=== PATIENT | male | born 1965 ===

== ENCOUNTER 2023-11-10 12:59 | Inpatient (IN) | payer MEDICAID ==
[~2023-11-10] VITALS: Ht 182.9 cm; Wt 77.7 kg
[2023-11-10 13:30] VITALS: BP 120/85; PULSE 91; RESP 16; TEMP 97.5; O2SAT 97
[2023-11-10] MEDS ORDERED: MAG HYDROX/ALUMINUM HYD/SIMETH ES 30 ML SUSPENSION UDCUP PO PRN (15:45)
[2023-11-10] MEDS ORDERED: MAGNESIUM HYDROXIDE SUSPENSION 30 ML UDCUP PO PRN (15:45)
[2023-11-10] MEDS ORDERED: LORazepam 2 MG TABLET PO PRN (15:45)
[2023-11-10] MEDS ORDERED: ACETAMINOPHEN 325 MG TABLET PO PRN (15:45)
[2023-11-10] MEDS ORDERED: TUBERCULIN, PURIFIED PROTEIN DERIVATIVE 5 TU/0.1 ML SYRINGE ID ONE (15:45)
[2023-11-10] MEDS ORDERED: HydrOXYzine PAMOATE 50 MG CAPSULE PO PRN (15:45)
[2023-11-10] MEDS ORDERED: PROMETHAZINE HCL 25 MG TABLET PO PRN (15:45)
[2023-11-10] MEDS ORDERED: GuaiFENesin/D-METHORPHAN [SUGAR-FREE] 200-20MG/10 ML SYRUP UDCUP PO PRN (15:45)
[2023-11-10] MEDS ORDERED: ZOLPIDEM TARTRATE 10 MG TABLET PO PRN (15:45)
[2023-11-10] MEDS ORDERED: LOPERAMIDE HCL 2 MG CAPSULE PO PRN (15:45)
[2023-11-10] MEDS ORDERED: OLANZapine 5 MG RAPDIS TABLET PO PRN (15:45)
[2023-11-10 22:30] VITALS: BP 137/95; PULSE 79; RESP 18; TEMP 97.8; O2SAT 97
[2023-11-10] MEDS: MELATONIN 5 MG TABLET PO SCH (22:41)
[2023-11-10] MEDS: OLANZapine 5 MG RAPDIS TABLET PO SCH (22:42)
[2023-11-11 08:50] LABS: BASOPHILS % (AUTO) 0.3 % (0.0-2.0); EOSINOPHILS % (AUTO) 2.3 % (1.0-6.0); HEMATOCRIT 41.9 % (41-53); HEMOGLOBIN 13.9 g/dL (13.5-17.5); LYMPHOCYTES # (AUTO) 1.7 K/uL (1.0-4.8); LYMPHOCYTES % (AUTO) 21.2 % (22.0-44.0); MEAN CORPUSCULAR HEMOGLOBIN 27.7 pg (26.0-34.0); MEAN CORPUSCULAR HGB CONC 33.1 G/dL (31.0-37.0); MEAN CORPUSCULAR VOLUME 84 fL (80-100); MONOCYTES # (AUTO) 0.8 K/uL (0.1-1.0); MONOCYTES % (AUTO) 9.7 % (2.0-9.0); NEUTROPHILS # (AUTO) 5.3 K/uL (1.8-7.7); NEUTROPHILS % (AUTO) 66.5 % (40.0-70.0); PLATELET COUNT (AUTO) 224 K/uL (150-450); RED BLOOD CELL COUNT(AUTO) 5.01 MIL/uL (4.50-5.90); RED CELL DISTRIBUTION WIDTH 14.5 % (11.5-14.5); WHITE BLOOD COUNT (AUTO) 7.9 K/uL (4.5-11.0)
[2023-11-11 08:52] VITALS: BP 131/85; PULSE 72; RESP 18; TEMP 96.9; O2SAT 95
[2023-11-11] MEDS: THIAMINE 100 MG TABLET PO SCH (09:00)
[2023-11-11] MEDS: FOLIC ACID 1 MG TABLET PO SCH (09:05)
[2023-11-11] MEDS: NALTREXONE HCL 50 MG TABLET PO SCH (09:05)
[2023-11-11 09:06] LABS: HEMOGLOBIN A1C 5.8 % (3.8-5.6)
[2023-11-11] MEDS: MULTIVITAMINS WITH MINERALS, THERAPEUTIC TABLET PO SCH (09:06)
[2023-11-11 09:18] LABS: ALANINE AMINOTRANSFERASE 25 U/L (12-78); ALBUMIN 3.3 g/dL (3.4-5.0); ALKALINE PHOSPHATASE 98 U/L (46-116); ANION GAP 10 mmol/L (8-16); ASPARTATE AMINOTRANSFERASE 19 U/L (15-37); BILIRUBIN,TOTAL 0.2 mg/dL (0.1-1.0); CALCIUM, TOTAL 8.4 mg/dL (8.8-10.5); CARBON DIOXIDE 23 mmol/L (22-29); CHLORIDE 108 mmol/L (98-107); CHOL/HDL RATIO 3.8 (4.2-7.3); CHOLESTEROL 161 mg/dL (131-200); FREE T4 (FREE THYROXINE) 0.96 ng/dL (0.76-1.46); GLOMERULAR FILTR. RATE CALC > 60 mL/min (>60); GLUCOSE,RANDOM 101 mg/dL (70-110); HDL CHOLESTEROL 42 mg/dL (40-60); LDL CHOL (CALC.) 101 mg/dL (0-130); POTASSIUM 3.9 mmol/L (3.5-5.1); SODIUM SERUM 141 mmol/L (136-145); TOTAL PROTEIN, SERUM 6.7 g/dL (6.4-8.2); TRIGLYCERIDES 91 mg/dL (15-150); UREA NITROGEN, BLOOD 28 mg/dL (7-18)
[2023-11-11] MEDS: OLANZapine 10 MG RAPDIS TABLET PO SCH (20:21)
[2023-11-11 21:11] VITALS: BP 119/87; PULSE 65; RESP 19; TEMP 97.1; O2SAT 98
[2023-11-12 05:08] LABS: HEPATITIS C AB (EIA) Non Reactive (Non Reactive)
[2023-11-12 08:16] LABS: PH,URINE DRUG SCREEN 6.5 (5.0-8.0)
[2023-11-12 08:22] LABS: ALCOHOL, URINE DRUG SCREEN NEGATIVE (NEGATIVE); AMPHET/METH SCREEN,URINE NEGATIVE (NEGATIVE); BARBITURATE SCREEN, URINE NEGATIVE (NEGATIVE); BENZODIAZEPINES SCREEN,URINE NEGATIVE (NEGATIVE); CANNABINOID SCREEN,URINE NEGATIVE (NEGATIVE); COCAINE SCREEN,URINE NEGATIVE (NEGATIVE); METHADONE SCREEN, URINE NEGATIVE (NEGATIVE); OPIATE SCREEN,URINE NEGATIVE (NEGATIVE); PHENCYCLIDINE SCREEN,URINE NEGATIVE (NEGATIVE)
[2023-11-12] MEDS: AmLODIPine BESYLATE 5 MG TABLET PO SCH (08:56)
[2023-11-12] MEDS: DULoxetine HCL 20 MG CAPSULE PO SCH (08:56)
[2023-11-12 09:56] VITALS: BP 125/83; PULSE 92; RESP 18; TEMP 96.9; O2SAT 94
[2023-11-12] MEDS ORDERED: MELA5TAB40 PO (15:05)
[2023-11-12] MEDS ORDERED: OLAN10TA26 PO (15:05)
[2023-11-12 20:43] VITALS: BP 132/85; PULSE 75; RESP 16; TEMP 96.5; O2SAT 95
[2023-11-13 08:25] VITALS: BP 147/89; PULSE 84; RESP 17; TEMP 97.5; O2SAT 95
== END 2023-11-13 17:26 | disposition home or self-care (01) | DRG 750 ==
LOC: B2S 17:38
PROVIDERS: ADMIT Psychiatry & Neurology Psychiatry; ATTEND Psychiatry & Neurology Psychiatry
PROC: GZHZZZZ Group Psychotherapy (ICD-10-PCS; principal; 2023-11-11)
PROC: GZ58ZZZ Individual Psychotherapy, Cognitive-Behavioral (ICD-10-PCS; 2023-11-11)
DX: F25.9 Schizoaffective disorder, unspecified (principal); J45.909 Unspecified asthma, uncomplicated; Z81.8 Family history of other mental and behavioral disorders; Z82.0 Family history of epilepsy and other diseases of the nervous system; Z91.199 Patient's noncompliance with other medical treatment and regimen due to unspecified reason; Z88.8 Allergy status to other drugs, medicaments and biological substances; Z91.011 Allergy to milk products
CPT/HCPCS: 80053; 80061; 80307; 83036; 84439; 84443; 85025; 86592; 86803; 87340